=== PATIENT | female | born 1980 | race Caucasian/White ===

== ENCOUNTER 2017-01-19 19:33 | Emergency (ER) | payer MEDICAID ==
--- NOTE | 2017-01-19 20:11 | EDPHY ---
H & P Time Seen by Provider: 01/19/17 20:02 HPI/ROS: CHIEF COMPLAINT: Crush injury left middle digit HISTORY OF PRESENT ILLNESS: 36-year-old female with out-of-date tetanus complaining of crush injury to her left middle digit distal phalanx at the proximal nail fold she got this area crushed in a door prior to arrival. Reproducible pain with palpation. PHYSICAL EXAM (Prior to examination, patient consented to physical exam, hands were washed and my usual and customary physical exam procedures followed) 1) GENERAL: Well-developed, well-nourished, alert and oriented. Appears to be in no acute distress. 2) HEAD: Normocephalic 3) HEENT: sclera anicteric 4) LUNGS: Breathing comfortably. 5) SKIN: left middle digit distal phalanx at the nail fold home laceration measuring 1.5 cm. 6) MUSCULOSKELETAL: sub ungual hematoma measuring less than 1% at the lunula Flexor and extensor function at the MCP PIP D IP intact no deficits. 7) NEUROLOGIC: Full sensation. Constitutional: Initial Vital Signs Temperature (C) 36.8 C 01/19/17 20:00 Heart Rate 70 01/19/17 20:00 Respiratory Rate 16 01/19/17 20:00 Blood Pressure 126/77 H 01/19/17 20:00 O2 Sat (%) 98 01/19/17 20:00 O2 Delivery Mode Room Air Allergies/Adverse Reactions: No Known Allergies Allergy (Unverified 01/19/17 20:19) Home Medications: Medication Instructions Recorded Cephalexin [Keflex] 500 mg PO TID 5 Days 01/19/17 MDM/Departure - MDM Imaging Results: Imaging Impressions Finger X-Ray 01/19/17 20:07 Impression: Normal left third finger series. Images reviewed by myself Imaging: I viewed and interpreted images myself Procedures: Procedure: Laceration repair. I explained the indications, risks and benefits for both laceration repair and anesthetic administration. Verbal consent was obtained from the patient . The laceration on the middle digit was anesthetized using 0.5% bupivicaine without epinephrine digital nerve block. After anesthetic administered the patient was observed for a period of time and had no apparent adverse effects. The wound was cleaned, prepped, draped in normal sterile fashion and explored to its base. No foreign body seen, no foreign bodies palpated. There were no deep structures involved. The wound was repaired with 3 simple interrupted 5 O Ethilon sutures. The wound repair was simple. The procedure was performed by myself. Patient has been informed that scarring will occur, although efforts have been made to minimize this. Medications Given: Discontinued Medications Diphtheria/Tetanus/Acell Pertussis (Boostrix) 0.5 ml IM .ONCE ONE Stop: 01/19/17 20:25 Last Admin: 01/19/17 20:28 Dose: 0.5 ml - Depart Disposition: Home, Routine, Self-Care Clinical Impression: Finger laceration Qualifiers: Encounter type: initial encounter Qualified Code(s): S61.219A - Laceration without foreign body of unspecified finger without damage to nail, initial encounter Condition: Good Instructions: Care For Your Stitches (ED), Laceration (ED) Additional Instructions: Return to the ER if you develop redness, swelling, discharge, warmth to the wound, red streaks going up your arm, or any other symptoms that concern you. Prescriptions: Cephalexin [Keflex] 500 mg PO TID 5 Days Referrals: Return, to the ER in 10 days for suture removal [Other] - As per Instructions
[2017-01-19 20:23] VITALS: RESP 16; TEMP 98.2; O2SAT 98
[2017-01-19] MEDS ORDERED: TDAP ADULT 0.5 ML INJ (BOOSTRIX) IM ONE (20:24)
[2017-01-19 21:22] VITALS: BP 126/82; PULSE 60
== END 2017-01-30 10:44 | disposition home or self-care (01) ==
PROC: 0HQGXZZ Repair Left Hand Skin, External Approach (ICD-10-PCS; principal; 2017-01-19)
DX: S61.213A Laceration without foreign body of left middle finger without damage to nail, initial encounter (principal); Z23 Encounter for immunization; W23.0XXA Caught, crushed, jammed, or pinched between moving objects, initial encounter